=== PATIENT | male | born 1975 | race Hispanic/Latino ===

== ENCOUNTER 2025-03-10 14:02 | Inpatient (IN) | payer OTHER, SELFPAY ==
[2025-03-10] VITALS (9 sets, daily range): BP systolic 155–197; BP diastolic 106–133; BMI 22.8; BMI 22.7
--- NOTE | 2025-03-10 10:46 | ED.GENMED ---
History of Present Illness
General
Chief Complaint: Change in Mental Status
Time Seen by Provider: 03/10/25 10:41
History of Present Illness
History of Present Illness:
49-year-old male with no known past medical history presents to the emergency department for evaluation of abdominal pain and vomiting, he apparently was noted this morning to be weak and drowsy on the couch by a friend and EMS was called. He
admits to drinking several drinks last night into this morning with his last drink at approximately 1 AM. States that when he felt unwell this morning he took 'a ton of vitamins' but he is uncertain exactly what these pills may have been. Noted to
be febrile on arrival. Denies any hematemesis or melena.
Past History
Past History
ED Past Medical History: None
ED Past Surgical History: None
Social History
Tobacco: Non-smoker
Alcohol: Daily
Personal: Single
Living: with family
Review of Systems
Review of Systems
Allergies reviewed?: Yes
All Other Systems: ROS reviewed and negative except as documented in HPI and ROS
Phy Exam
Physical Exam
Physical Exam:
GEN: Ill-appearing, no immediate distress
HEENT: Oral mucosa moist, no scleral icterus
Cardiac: Tachycardic, regular
Lung: No respiratory distress, no tachypnea
Abdomen: Soft, diffuse tenderness to all 4 quadrants
MSK: No gross deformity or injuries
Skin: Good color, no pallor or jaundice, no rashes
Neuro: AO x3, moves all extremities freely
Psych: Calm, cooperative
Course
Orders/Labs/Results
Orders:
Orders
03/10/25 10:40
EKG [Electrocardiogram (*1)] Urgent
Reason for Study: Tachycardia
03/10/25 10:41
EKG- Treatment ONCE
03/10/25 10:42
COVID-19 Antigen Urgent
Source: Nasal Swab
Influenza A+B Rapid Molecular Urgent
SHANNAN Source: Nasal Swab
Specimen Description:
03/10/25 10:44
0.9% Sodium Chloride 1000 ml [Nss] 1,000 ml IV BOLUS
Ondansetron Injectable [Zofran] 4 mg IV NOW STA
03/10/25 10:49
Acetaminophen Urgent
Alcohol Urgent
Complete Blood Count/With Diff Urgent
Comprehensive Metabolic Panel Urgent
Lipase Urgent
Salicylate Urgent
03/10/25 11:01
Urinalysis Reflex To Culture Urgent
Date Specimen was Collected: 03/10/25
Time Specimen was Collected: 10:58
Urine Drug Abuse Screen Urgent
Date Specimen was Collected: 03/10/25
Time Specimen was Collected: 10:58
Urine Microscopic Reflex Cult Urgent
Urine Culture Urgent
SHANNAN Source: U
Specimen Description:
Date Specimen was Collected: 03/10/25
Time Specimen was Collected: 10:58
03/10/25 11:35
CT Abd/Pel (IV only)-DH only Urgent
Comment:
Reason For Exam: pancreatitis/fever
03/10/25 11:36
diazePAM [Valium Injection] 5 mg IV NOW STA
03/10/25 13:45
Admit/Transfer Patient As Directed
Co-Sign Provider:
Level of Care: Inpatient admission
Assign to:: Telemetry
Physician / Group: olinda
Diagnosis: alcohol pancreatitis
Reason for Telemetry: Arrhythmia
Date to Stop Telemetry: 03/13/25
Time to Stop Telemetry: 11:00
Reason for Hospitalization: alcohol pancreatitis
Expected length of stay greater than two midnights?: Yes
ELOS- Estimated Length of Stay in days: 3
I certify the patient meets the requirements for IP care: Yes
03/10/25 13:46
PRN Pain Medication Management As Directed
May give lesser potent ordered pain med per pt: Yes
preference::
Protocol:: Medication orders for pain may be administered in a
manner that supports deferring to patient preference
when the pt is:
- Requesting an ordered lesser potent pain medication.
Least to most potent pain medications are defined
as: acetaminophen < NSAID < tramadol < opioids
(morphine, oxycodone, hydromorphone).
- Requesting a lesser dose of the same medication IF
ORDERED.
- Requesting a less intrusive route of administration
if both routes are prescribed by the provider (PO <
IV).
03/10/25 13:47
Code Status As Directed
Resuscitation Status: Full Code
03/10/25 13:53
Potassium Chloride [KCl] 40 meq PO NOW STA
03/10/25 14:00
Flush (0.9% Sodium Chloride) [Flush (Nss)] See Dose Instructions IV PER PROTOCOL
03/10/25 14:01
PT/INR [Prothrombin Time] Stat
Blood Culture Q30M
SHANNAN Source: Blood/Venous
Specimen Description:
03/10/25 14:19
Blood Culture Q30M
SHANNAN Source: Blood/Venous
Specimen Description:
03/13/25 11:00
DC Protocol for Telemetry ONCE
Abnormal Lab Results
03/10/25 03/10/25
10:49 11:01
RDW 14.8 H %
(11.5-14.5)
Plt Count 43 L 10^3/uL
(130-400)
Absolute Lymphs (auto) 0.5 L 10^3/uL
(1.2-3.4)
Neutrophils % 83.0 H %
(42.2-75.2)
Lymphocytes % 9.9 L %
(20.5-51.1)
Sodium 133 L mmol/L
(135-145)
Potassium 3.4 L mmol/L
(3.5-5.1)
Chloride 90 L mmol/L
(98-107)
Glucose 225 H mg/dl
(70-99)
Total Bilirubin 2.1 H mg/dl
(0.2-1.3)
AST 630 H* U/L
(17-59)
ALT 203 H U/L
(0-50)
Lipase 1902 H* U/L
(23-300)
Urine Ketones 3+ A
(Negative)
Ur Occult Blood Reflex 4+ A
(Negative)
Urine Bilirubin 1+ A
(Negative)
Urine RBC 3-6 A /HPF
(0-2)
Urine Bacteria (Reflex) Moderate A
(Negative)
Urine Glucose 1+ A
(Negative)
Urine Albumin (Reflex) 3+ A
(Neg - Trace)
Salicylates < 1.0 L mg/dl
(2.0-20.0)
Acetaminophen < 10 L ug/ml
(10-30)
03/10/25 10:49
03/10/25 10:49
Vital Signs
Initial and Last Documented VS:
Initial Vital Signs
Temp Pulse Resp BP Pulse Ox
100.4 F H 132 20 197/133 95
03/10/25 10:35 03/10/25 10:35 03/10/25 10:35 03/10/25 10:35 03/10/25 10:35
Last Documented Vital Signs
Temp Pulse Resp BP Pulse Ox
100.1 F 113 20 167/117 98
03/10/25 13:50 03/10/25 13:24 03/10/25 10:35 03/10/25 14:00 03/10/25 14:00
MDM/Problems Addressed
MDM/Problems Addressed:
Patient's symptoms are likely due to acute pancreatitis, imaging shows no evidence for acute disease. He does admit to heavy alcohol use over the past 8 days but denies chronic use otherwise. Will be admitted to the hospitalist service for further
management of acute pancreatitis
Comment
Comment:
EKG independently interpreted by me shows sinus tachycardia without ischemic changes
*Pulse Oximetry
SaO2: 95
Oxygen Mode of Delivery: Room air
Patient hypoxic: no
*Critical Care Note
Total Time (30-74mins, 75-104mins- exclusive of procedures): Not Applicable
ED Attending Note
-
Portions of this chart may have been created with voice recognition software.� Occasional wrong word or��sound alike� substitutions may have occurred due to the inherent limitations of voice recognition software.
Discharge Plan
Departure
Patient Disposition: Admit
Date of Disposition: 03/10/25
Time of Disposition: 13:21
Admit to: Med/Surg
Presentation/result/management discussed w/ accepting MD/DO: Hospitalist
Discharge Problem:
Acute alcoholic pancreatitis, Alcohol withdrawal
Interventions
Interventions:
*Risk Screen - Suicide Last Done: 03/10/25 13:57
*General Assessment Last Done: 03/10/25 13:57
*Neglect/Abuse Screening Last Done: 03/10/25 13:57
ED- Neurological Assessment Last Done: 03/10/25 12:13
[2025-03-10] MEDS: NSS 1000 IV (10:53)
[2025-03-10] MEDS: ZOFRAN 4 MG IV ×2 (10:54→17:28)
[2025-03-10 11:04] LABS: COVID-19 Antigen Negative (Negative)
[2025-03-10 11:09] LABS: Urine Character Clear (Clear)
[2025-03-10 11:12] LABS: Hematocrit 42.0 % (39.0-52.0); Hemoglobin 14.4 g/dL (13.0-18.0); Mean Corp Hgb Conc. 34.3 g/dL (33.0-37.0); Mean Corpuscular Volume 84.2 fL (80.0-94.0)
[2025-03-10 11:13] LABS: Nucleated Red Blood Cells % 0 % (-)
[2025-03-10 11:16] LABS: Urine White Cell 0-2 /HPF (0-5)
[2025-03-10 11:34] LABS: ALT (SGPT) 203 U/L (0-50); AST (SGOT) 630 U/L (17-59); Acetaminophen < 10 ug/ml (10-30); Albumin 4.5 g/dl (3.5-5.0); Alkaline Phosphatase 106 U/L (38-126); Blood Urea Nitrogen 11 mg/dl (9-20); Calcium 9.3 mg/dl (8.4-10.2); Carbon Dioxide 28 mmol/L (22-30); Chloride 90 mmol/L (98-107); Glucose 225 mg/dl (70-99); Lipase 1902 U/L (23-300); Potassium 3.4 mmol/L (3.5-5.1); Salicylate < 1.0 mg/dl (2.0-20.0); Sodium 133 mmol/L (135-145); Total Protein 8.1 g/dl (6.3-8.2); eGFR > 60.00
[2025-03-10] MEDS: VALIUM INJECTION 5 MG IV (11:49)
[2025-03-10 12:27] LABS: Platelet Count 43 10^3/uL (130-400); Red Cell Dist. Width 14.8 % (11.5-14.5)
--- NOTE | 2025-03-10 13:23 | HPS.HSE ---
Addendum entered and electronically signed by Carli Sharif MD 03/10/25 15:01:
This is an addendum to H&P written by Leia Ricketts on 03/10/2025. �Patient seen and examined independently with [employer].
49-year-old male without past medical history presenting with abdominal pain with vomiting for 3 days. �Drinks 1 tequila drink every day last drink 2 days ago. Denies taking any drugs or vitamins or tablets.�
Vital signs show temperature 100.4. �Heart rate up to 132. �Blood pressure 197/133. �EKG shows sinus tachycardia. Tenderness in mid periumbilical region.�
Labs show potassium 3.4. AST of 630, ALT 203. �Lipase of 1900. �Blood sugar 225. �Salicylates and Tylenol negative. �UDS negative. �Alcohol level negative.
CT abdomen pelvis shows no significant peripancreatic inflammation or fluid collection despite elevated lipase levels. �Hepatomegaly and severe hepatic steatosis.
Patient with sepsis likely acute alcoholic pancreatitis although imaging without pancreatic inflammation. �N.p.o., IV fluids, check blood cultures due to fever. �Check PT and INR. �Pain control, antiemetics. �Hypokalemia from vomiting. �Replete
potassium. �Alcohol withdrawal protocol. �Thiamine and folate. Gi consulted.
PRN labetalol for hypertension.�
Check a1c and monitor blood sugars.�
Original Note:
Family Physician
-
Family Physician: * NONE
Chief Complaint
-
abdominal pain and vomiting
History of Present Illness
49-year-old male with no known past medical history presents to the emergency department for evaluation of abdominal pain and vomiting for past three days,patient stated he drinks Tequila one bottle every day. he has not drink for past two days due
to the abdominal pain and vomiting. his pain is in the middle around his umbical area. today he was very weak and brought to the hospital. denied fever, chills, chest pain, sob. denied dysuria or hematuria.
upon arrival noted transaminitis, elevated Lipase. admitting for further management. Patient received a dose of Valium, Zofran in the ER.
Medical History
Past Medical History
Past Medical History: Reports None
Past Surgical History: Reports None
Social History
Tobacco: Non-smoker
Alcohol: Daily
Drug: None
Living: With Family
Family History
Family History: Not pertinent
Allergies / Home Medications
Allergies reflects when Allergies were last updated in [facility].
Home Medications with original date entered in [facility]
Allergy/Medication List:
Allergies
Allergy/AdvReac Type Severity Reaction Status Date / Time
No Known Allergies Allergy Unverified 03/26/15 08:10
Home Medications
No Current Medications 12/26/12
pantoprazole 40 mg tablet,delayed release 40 mg PO BID #20 tabs 12/26/12
hydrocodone 5 mg-acetaminophen 325 mg tablet 1 - 2 tab PO Q4HPRN PRN severe pain #12 tabs 03/26/15
ibuprofen 600 mg tablet 600 mg PO Q8HPRN PRN pain #30 tabs 03/26/15
Review of Systems
-
Constitutional: Reports No Symptoms
EENT: Reports No Symptoms
Respiratory: Reports No Symptoms
Cardiac: Reports No Symptoms
Abdomen/GI: Reports Abdominal Pain, Nausea and Vomiting
: Reports No Symptoms
Musculoskeletal: Reports No Symptoms
Skin: Reports No Symptoms
Neurological: Reports No Symptoms
Endocrine: Reports No Symptoms
Hematologic/Lymphatic: Reports No Symptoms
Psych: Reports No Symptoms
Physical Exam
Vital Signs
Vital Signs
Temp Pulse Resp BP Pulse Ox
100.4 F H 113 20 197/133 97
03/10/25 10:35 03/10/25 12:13 03/10/25 10:35 03/10/25 10:35 03/10/25 12:13
Physical Exam
General: Well Developed, Well Nourished and No Apparent Distress
HEENT: NormoCephalic, Moist mucous membranes and Atraumatic
Respiratory: Clear
Cardiac: S1/S2 and Regular Rhythm; No Murmur or Rub
GI: Soft, Non Distended, Normal Bowel Sounds and Tender; No Organomegaly
Rectal: Deferred by Provider
Musculoskeletal: No Clubbing, No Cyanosis and No Edema
Skin: No Rash
Neuro: AO x 3 and Nonfocal/grossly intact
Psych: Calm
Laboratory Results
-
03/10/25 10:49
03/10/25 10:49
Laboratory Results
Total Bilirubin 2.1 mg/dl (0.2-1.3) H 03/10/25 10:49
AST 630 U/L (17-59) H* 03/10/25 10:49
ALT 203 U/L (0-50) H 03/10/25 10:49
Alkaline Phosphatase 106 U/L (38-126) 03/10/25 10:49
Lipase 1902 U/L (23-300) H* 03/10/25 10:49
Data Reviewed
-
CT Scan: Report Reviewed by me
Lab Data: Labs Reviewed by me
Impression/Plan
-
# sepsis secondary to Acute alcohol pancreatitis
#sepsis as evident by tachycardia fever
- Keep patient n.p.o.
- Fluids continued for hydration
- Trend LFTs and lipase
-Motrin prn for fever
- T. bili 2.1, AST 630, ALT 203, lipase 1902
- CT abdomen pelvis with impression of No significant peripancreatic inflammation/fluid or loculated fluid collection despite the elevated lipase levels.Hepatomegaly and severe hepatic steatosis.
# Acute hyponatremia likely hypovolemic
# Hypokalemia
- Sodium 133, K3.4
# Hypertension emergency
-labetalol added for htn and tachycardia
#hyperglycemia
-blood sugar elevated in 200's
-obtain accu chek and a1c
#alcohol withdrawal
-alcohol protocol initiated
-monitor MSAS score
#DVT prophylaxis
-Lovenox
#CODE status
-full code
[2025-03-10] MEDS: KCL 40 MEQ PO (14:15)
[2025-03-10 14:36] LABS: INR 0.95; PT 13.0 Sec (11.4-14.6)
--- NOTE | 2025-03-10 15:24 | EDCM ---
CM reviewed chart and met with pt bedside in ED. Pt states limited [place] Citizen. He told me he lives with his son and daughter in a 3 story home in [place], unable to give me address, He told me the [facility] address is not correct.
Independent in ADLs, personal care and ambulation at baseline.
Confirms he does not have health insurance.
Does not have PCP and is not able to name which pharmacy he would use.
Email sent to Ivet Leiva requesting she meet with pt regarding insurance coverage.
Anticipate discharge home, CM will continue to follow for all discharge planning needs.
[2025-03-10] MEDS: LR 1000 IV ×2 (16:44→23:27)
[2025-03-10] MEDS: LOVENOX 40 MG SC (17:22)
[2025-03-10 17:45] LABS: INR 0.98; PT 13.3 Sec (11.4-14.6)
[2025-03-10 17:46] LABS: APTT 26.7 Sec (23.4-35.0)
[2025-03-10 18:01] LABS: GGTP 1186 U/L (15-73); Magnesium 1.5 mg/dl (1.6-2.3)
[2025-03-10 18:03] LABS: Glucose - Point of Care 103 mg/dl (70-99)
--- NOTE | 2025-03-10 18:07 | PTCARENOTE ---
Pt started with a spontaneous nosebleed. Pt leaned forward and held pressure on the nose for 5min. Dr Sharif notified. After 5min nosebleed stopped. Dr Sharif recommended to hold pressure and lean forward for 15min if his nose starts to bleed
again.
[2025-03-10] MEDS: THIAMINE INJECTION 200 MG IV (20:45)
[2025-03-11] VITALS (9 sets, daily range): BP systolic 165–198; BP diastolic 106–159; BMI 22.7
[2025-03-11 00:52] LABS: Glucose - Point of Care 79 mg/dl (70-99)
[2025-03-11] MEDS: LR 1000 IV ×3 (05:50→19:52)
[2025-03-11 06:20] LABS: Glucose - Point of Care 82 mg/dl (70-99)
[2025-03-11] MEDS: FOLVITE 1 MG PO (07:58)
[2025-03-11] MEDS: THIAMINE INJECTION 200 MG IV ×2 (07:58→20:00)
[2025-03-11] MEDS: MOTRIN 400 MG PO (08:08)
[2025-03-11 08:20] LABS: ALT (SGPT) 168 U/L (0-50); AST (SGOT) 383 U/L (17-59); Albumin 3.8 g/dl (3.5-5.0); Alkaline Phosphatase 68 U/L (38-126); Blood Urea Nitrogen 7 mg/dl (9-20); Calcium 8.5 mg/dl (8.4-10.2); Carbon Dioxide 33 mmol/L (22-30); Chloride 94 mmol/L (98-107); Estimated Creatinine Clearance 124 ml/min; Glucose 81 mg/dl (70-99); HDL Cholesterol 64 mg/dl; LDL Cholesterol, Calculated 105 mg/dl; Potassium 2.9 mmol/L (3.5-5.1); Sodium 135 mmol/L (135-145); Total Protein 6.9 g/dl (6.3-8.2); Very Low Density Lipoprotein 19 mg/dl (0-30); eGFR > 60.00
--- NOTE | 2025-03-11 08:23 | CON.GI ---
Consultation
-
Date/Time Consultation Requested: 03/10/25
Date/Time Consultation Performed: 03/10/25
Requesting Provider: Leia Ricketts
Performing Provider: Jodi Olivas
Reason for Consultation: Etoh pancreatitis
Medical History
Chief Complaint / HPI
Chief Complaint: abdominal pain, nausea, vomiting
History of Present Illness:
Julio Graff is a 49 y.o. male with no reported pmhx who was admitted to yesterday with abdominal pain and vomiting x3 days. He admits to daily alcohol consumption, states he drinks 1 bottle of tequila or 10 beers daily for the last 15 years.
Last drink of alcohol was about 3 days ago with symptom onset due to his N/V. Due to severe weakness, he was brought to the hospital.
Labs on admission notable for elevated liver enzymes, elevated lipase and thrombocytopenia. He reports feeling much better this morning, would like to try eating.
WBC 5.2, Hgb 14.4, Plt 43, INR 0.95
BUN 11, Cr. 0.8
Tbili 2.1, AST 630, ALT 203, Tbili 2.1, Alk phos 106
Lipase 1902
UDS neg
UA +blood, ketones, RBC, moderate bacteria
Acetaminophen level neg
Salicylate level neg
Of note, last here at in 2012 and 2014 at which time he also had elevated LFTs, AST 118, ALT 123
CT A/P w/ IV Contrast 03/10/25: Hepatomegaly. Severe hepatic steatosis.
Past Medical History
Past Medical History: None
Past Surgical History: None
Social History
Alcohol: Daily
Family History
Family History: Reviewed & Not Pertinent
Allergies / Home Medications
Allergy/AdvReac Type Severity Reaction Status Date / Time
No Known Allergies Allergy Verified 03/10/25 15:41
�Medication �Instructions �Recorded
No Meds [No Current Medications] 03/10/25
Review of Systems
-
All other systems: A 12 pt ROS was Negative except as stated above in HPI
Vital Signs
Temp Pulse Resp BP Pulse Ox
99.8 F 114 16 168/118 99
03/11/25 03:24 03/11/25 03:24 03/11/25 03:24 03/11/25 03:24 03/11/25 03:24
Physical Exam
Exam
General: Well Developed, Well Nourished, No Apparent Distress and Comfortable
GI: Soft and Non Distended
Results
WBC 5.2 10^3/uL (4.8-10.8) 03/10/25 10:49
Hgb 14.4 g/dL (13.0-18.0) 03/10/25 10:49
Hct 42.0 % (39.0-52.0) 03/10/25 10:49
MCV 84.2 fL (80.0-94.0) 03/10/25 10:49
Plt Count 43 10^3/uL (130-400) L 03/10/25 10:49
Absolute Neuts (auto) 4.4 10^3/uL (1.4-6.5) 03/10/25 10:49
PT 13.3 Sec (11.4-14.6) 03/10/25 17:24
INR 0.98 03/10/25 17:24
APTT 26.7 Sec (23.4-35.0) 03/10/25 17:24
Sodium 135 mmol/L (135-145) 03/11/25 07:17
Potassium 2.9 mmol/L (3.5-5.1) L 03/11/25 07:17
Chloride 94 mmol/L (98-107) L 03/11/25 07:17
Carbon Dioxide 33 mmol/L (22-30) H 03/11/25 07:17
BUN 7 mg/dl (9-20) L 03/11/25 07:17
Creatinine 0.7 mg/dL (0.7-1.3) 03/11/25 07:17
Calcium 8.5 mg/dl (8.4-10.2) 03/11/25 07:17
Total Bilirubin 1.7 mg/dl (0.2-1.3) H 03/11/25 07:17
AST 383 U/L (17-59) H 03/11/25 07:17
ALT 168 U/L (0-50) H 03/11/25 07:17
Alkaline Phosphatase 68 U/L (38-126) 03/11/25 07:17
Lipase 1902 U/L (23-300) H* 03/10/25 10:49
Diagnostic Image Results:
Prior GI Procedures:
EGD:
Colonoscopy:
Assessment / Plan
-
49 y.o. male with alcohol abuse admitted with abdominal pain, nausea and vomiting found to have acute alcohol hepatitis with acute pancreatitis and thrombocytopenia.
#Acute alcohol hepatitis
-imaging shows severe hepatic steatosis and hepatomegaly, no findings of portal HTN or splenomegaly, however, significant thrombocytopenia, c/f either cirrhosis or portal HTN which can manifest with severe alc hep
-needs electrolyte repletion-- low mg, k
-recommend US w/ dopplers
-hepatitis panel pending
-LFTs elevated with AST > ALT, may have some ischemic injury as well with AST >600, now LFTs all improving
-continue to trend
-jono DF: 2.1
-MELD 3.0 = 12
-cousneled patient on need for etoh cessation-- suspect advanced hepatic fibrosis or cirrhosis with risk for further decompensation with ongoing etoh use. He expressed understanding and states he will stopped drinking, feels he is able to do this on
his own.
#Acute etoh pancreatitis-clinically improving
-Lipase 1902
-c/w LR
-pain control
-antiemetics
-advance diet as tolerated
Clinically, patient is improving. Advance diet and reduce fluids. From a GI perspective okay for d/c with outpatient GI/hepatology follow-up. GI will sign off, please call with questions.
Data Reviewed
-
CT Scan: Report Reviewed by me
Old Records: Reviewed
-
-
Thank you for consultation and allowing me to participate in the patient's care. Please call the [employer] [employer] GI physician during the after hours with any questions or concerns.
[2025-03-11 08:29] LABS: Lipase 2029 U/L (23-300)
[2025-03-11 09:00] LABS: Hematocrit 38.0 % (39.0-52.0); Hemoglobin 12.5 g/dL (13.0-18.0); Mean Corp Hgb Conc. 32.9 g/dL (33.0-37.0); Mean Corpuscular Volume 87.6 fL (80.0-94.0); Platelet Count 33 10^3/uL (130-400); Red Cell Dist. Width 14.6 % (11.5-14.5)
[2025-03-11 09:20] LABS: Glucose - Point of Care 77 mg/dl (70-99)
[2025-03-11] MEDS: KCL 270 MEQ IV (10:35)
--- NOTE | 2025-03-11 11:14 | W.PN.HOSP.TC ---
Addendum entered and electronically signed by Sarah Peralta MD 03/11/25 11:47:
Attending�addendum:
I saw and evaluated the patient. I reviewed the resident�s note and agree with findings and plan as documented in the resident�s note.��
Patient admitted last night with alcohol induced pancreatitis.
Patient seen and examined at bedside, denies any chest pain or shortness of breath, improved abdominal pain, no nausea, no vomiting, no diarrhea or constipation.
Physical�exam:
GENERAL : Patient is awake, alert, oriented x3
HEENT: Nonicteric sclerae, PERRLA, EOMI. Oropharynx clear. Moist mucous membranes. Conjunctivae appear well perfused.
CHEST: Chest wall is nontender.
HEART: Regular rate and rhythm without murmurs.
LUNGS: Clear to auscultation bilaterally.
ABDOMEN: Soft, positive bowel sounds, nontender, no organomegaly.
RECTAL: Deferred.
MUSCLES/EXTREMITIES: No abnormal range of motion, no swelling.SKIN: No rash, no excessive bruising, petechiae, or purpura.
NEUROLOGIC: Cranial nerves II-XII intact without motor/sensory deficit.
�
Assessment/plan:
Acute pancreatitis secondary to alcohol use.
IV fluid.
Start clear liquid diet.
Trend LFTs and lipase.
Alcohol use/withdrawal.
Continue CIWA protocol.
SIRS secondary to acute pancreatitis.
No evidence of infection
Transaminitis/alcoholic liver disease
Secondary to alcohol use
Hypertension.
No history of hypertension.
Not on any medications at home.
Could be contributed with pain.
Start low-dose Toprol-XL
Hypokalemia.
Replace
Hyperglycemia.
Hemoglobin A1c pending
CODE STATUS: Full code
DVT prophylaxis: Lovenox
Diet: Clear liquid
Disposition: Continue IV fluids, CIWA protocol, advance diet, replace K
�
Total time spent on today�s encounter was 51 minutes which included time spent in counseling the patient/family regarding diagnosis and treatment plan as listed above, goals of care, and symptom management. Case was discussed with nursing staff,
specialists, and care coordinators/case management. All labs and imaging personally reviewed by me. Remainder the time spent in detailed review of previous records, lab data, imaging, and other medical provider documentation.
Original Note:
Today's Communication/Plan
-
K repleted
advanced diet to clear liquids
started on Metoprolol XI 25mg PO daily for high blood pressure
Assessment / Plan
Assessment / Plan
49-year-old male without past medical history presenting with abdominal pain with vomiting for 3 days. �Drinks 1 tequila drink every day last drink 2 days ago. Denies taking any drugs or vitamins or tablets. �
Vital signs show temperature 100.4. �Heart rate up to 132. �Blood pressure 197/133. �EKG shows sinus tachycardia. Tenderness in mid periumbilical region.�
Labs at ER show potassium 3.4. AST of 630, ALT 203. �Lipase of 1900. �Blood sugar 225. �Salicylates and Tylenol negative. �UDS negative. �Alcohol level negative.
CT abdomen pelvis shows no significant peripancreatic inflammation or fluid collection despite elevated lipase levels. �Hepatomegaly and severe hepatic steatosis.
Plan:
# SIRS secondary to Acute alcohol pancreatitis as an inflammatory source (Tachycardia and fever) w/o source of infection found
- TG wnl
- follow hepatitis panel
- on clear liquids
- Fluids continued for hydration
- Trend LFTs and lipase
-Motrin prn for fever
- CT abdomen pelvis with impression of No significant peripancreatic inflammation/fluid or loculated fluid collection despite the elevated lipase levels.Hepatomegaly and severe hepatic steatosis.
#Transaminitis
-likely secondary to alcoholic liver , acute pancreatitis
-GGT level elevated
# Acute hyponatremia likely hypovolemic
-Sodium 135
# Hypokalemia
-K 2.5 repleted
# Hypertension emergency
-labetalol added for htn and tachycardia PRN
-started on metoprolol XI 25mg PO daily
#hyperglycemia
-blood sugar elevated in 200's
-obtain accu chek and a1c
#alcohol withdrawal
-alcohol protocol initiated
-monitor MSAS score
#DVT prophylaxis
-Lovenox
#CODE status
-full code
Anticipated Discharge: > 48 hours
Subjective/Interval History
-
Date of Service: March 11, 2025
Objective Data
-
Labs:
Laboratory Results
03/11/25
07:17
WBC 5.1
Hgb 12.5 L
Hct 38.0 L
Plt Count 33 L D
Sodium 135
Potassium 2.9 L
Chloride 94 L
Carbon Dioxide 33 H
BUN 7 L
Creatinine 0.7
Glucose 81
Calcium 8.5
Total Bilirubin 1.7 H
AST 383 H
ALT 168 H
Alkaline Phosphatase 68
Vital Signs:
Vital Signs
Temp Pulse Resp BP Pulse Ox
98.8 F 92 16 165/106 98
03/11/25 07:30 03/11/25 07:30 03/11/25 07:30 03/11/25 07:30 03/11/25 07:30
I&O
03/10/25 03/11/25 03/12/25
06:59 06:59 06:59
Intake Total 1800 / 1800
Balance 1800 / 1800
[2025-03-11] MEDS: TOPROL XL 25 MG PO (11:20)
[2025-03-11 12:00] LABS: Glucose - Point of Care 126 mg/dl (70-99)
[2025-03-11 12:09] LABS: Glycohemoglobin (HgbA1c) 5.7 % (4.0-5.6)
[2025-03-11 16:11] LABS: Hepatitis B Surface Antigen Negative (Negative)
[2025-03-11 16:29] LABS: Hepatitis A Antibody, Total Positive (Negative); Hepatitis C Antibody Negative (Negative)
[2025-03-11 16:49] LABS: Glucose - Point of Care 230 mg/dl (70-99)
[2025-03-11] MEDS: TRANDATE 10 MG IV (16:49)
[2025-03-11] MEDS: VALIUM INJECTION 5 MG IV ×3 (18:22→21:33)
--- NOTE | 2025-03-11 18:27 | PTCARENOTE ---
BP remains elevated after labetalol. Dr Smith notified. One time order of Valium ordered. Advised to recheck BP 1 hr after administration.
[2025-03-11] MEDS: CATAPRES 0.1 MG PO (20:42)
[2025-03-11 21:11] LABS: Glucose - Point of Care 119 mg/dl (70-99)
--- NOTE | 2025-03-11 21:30 | W.PN.UPDATE ---
Update Note
Progress Note Update
code purple x 2
Patient is Thai speaking, management information systems director services was used during the assessment.
He is very confused, trying to leave the hospital and staff was not able to redirect, patient just receive 5 mg Valium per the [facility] protocol before the first code purple. I tried to speak to the patient with the management information systems director services but the patient
confused. Staff and me tried to call the family/listed contacts multiple times with no answer, Patient is confused not able to unlock his phone to make calls as well. One time order for Valium 5mg IV.
-around 30 mins later, patient is more confused and running in the hallway, 2nd purple code placed. Soft restraints applied for patient safety, will start phenobarbital per protocol and transfer to IMU.
Plan to start Precedex/ICU as needed if no improvement or getting worse.
--- NOTE | 2025-03-11 22:15 | PTCARENOTE ---
Patient with agitation/ unable to reorient/ tried to escape through [facility] . Code purple called. Given Valium 5mg X2 with no effect. Blood sugar- 119. ST in 120s on tele. Placed patient on soft limb 4 point reastraint. Report called to ICU and
transferred patient to ICU as IMU overflow.
[2025-03-11] MEDS: DILAUDID 0.5 MG IV (22:27)
[2025-03-11] MEDS: PHENOBARBITAL 104 MG IV (22:27)
--- NOTE | 2025-03-11 22:30 | PTCARENOTE ---
Addendum entered by Mariel Barrera RN 03/11/25 23:03:
[employer] ordered medication for high blood pressure.
Original Note:
Pt's blood pressure manual 180/120, notified [employer].
[2025-03-11] MEDS: VALIUM INJECTION 10 MG IV (22:56)
--- NOTE | 2025-03-11 23:19 | PTCARENOTE ---
Patient received as transfer, patient in 4 point soft restraints. Khmer speaking, language line used for assessment and explanation of plan of care. Sinus Tachycardia in the 130s, blood pressure elevated. diaphoretic. Lungs clear, room air.
Abdomen soft but complaining of pain. No need to void. #20 g in LAC with IVF infusing as ordered, #22 g in left hand flushed and patent. CHG bath given
[2025-03-12] VITALS (13 sets, daily range): BP systolic 86–166; BP diastolic 66–122
[2025-03-12] MEDS: VALIUM INJECTION 10 MG IV ×4 (01:27→08:28)
[2025-03-12] MEDS: DILAUDID 0.5 MG IV ×2 (03:13→19:42)
[2025-03-12 04:35] LABS: Hematocrit 36.4 % (39.0-52.0); Hemoglobin 12.7 g/dL (13.0-18.0); Mean Corp Hgb Conc. 34.9 g/dL (33.0-37.0); Mean Corpuscular Volume 85.6 fL (80.0-94.0); Platelet Count 34 10^3/uL (130-400); Red Cell Dist. Width 14.1 % (11.5-14.5)
[2025-03-12] MEDS: LR 1000 IV ×3 (04:46→18:31)
[2025-03-12 05:16] LABS: ALT (SGPT) 130 U/L (0-50); AST (SGOT) 225 U/L (17-59); Albumin 3.5 g/dl (3.5-5.0); Alkaline Phosphatase 52 U/L (38-126); Blood Urea Nitrogen 5 mg/dl (9-20); Calcium 8.0 mg/dl (8.4-10.2); Carbon Dioxide 33 mmol/L (22-30); Chloride 99 mmol/L (98-107); Estimated Creatinine Clearance 108 ml/min; Glucose 93 mg/dl (70-99); Potassium 3.0 mmol/L (3.5-5.1); Sodium 138 mmol/L (135-145); Total Protein 6.5 g/dl (6.3-8.2); eGFR > 60.00
[2025-03-12 06:21] LABS: Magnesium 1.3 mg/dl (1.6-2.3)
[2025-03-12] MEDS: KCL 270 MEQ IV (06:23)
--- NOTE | 2025-03-12 07:55 | W.PN.HOSP.TC ---
Addendum entered and electronically signed by Margret Cespedes MD 03/12/25 17:52:
I saw and evaluated the patient independently. I reviewed the resident�s note and agree with findings and plan as documented by Dr. Bañuelos.
GENERAL: well developed, well nourished, male in no apparent distress
HEENT:NC/AT
HEART: regular rate and rhythm, +S1, +S2--tachycardic
LUNGS : clear to auscultation bilaterally
ABDOM: soft, mild tenderness midepigastrium, nondistended, + bowel sounds
EXT: no cyanosis, clubbing, or edema
NEUROLOGIC: no tremors--confused--no insight into condition and why he needs to stay
SIRS secondary to Acute alcoholic pancreatitis/hepatitis as an inflammatory source (Tachycardia and fever) w/o source of infection found--lipase decreasing--190, 2028, 1086--triglycerides WNL--cont IVF but can decrease rate--advance diet as
tolerated--CT with severe hepatic steatosis--hepatitis panel checked--pt is NOT immune to Hep B and has previous Hep A infection--await US with doppler--apprec GI
acute alcohol withdrawal--cont MSAS--cont phenobarbital taper and IV valium--if BP/HR remain elevated and mental status/respiratory rate depressed, may need precedex--await [facility] input--apprec psych--pt lacks capacity to be able to sign out AMA
Electrolyte abnormalities--Hypokalemia/hypomagnesemia--replete
Acute hyponatremia, likely hypovolemic�resolved
Hypertensive urgency--BP 197/133 on admission--due to ETOH withdrawal--started metoprolol XL 25mg PO daily--labetalol 10 mg as needed for HTN and tachycardia
hyperglycemia--blood sugar elevated in 200's, decreasing--obtain accu chek and a1c
DVT prophylaxis--Lovenox
CODE STATUS--full code
Original Note:
Today's Communication/Plan
-
Lipase decreased to 1086.
Advanced diet and will decrease fluids.
Abdomen ultrasound with Dopplers pending
- Consider precedex for future agitation/delirium since the patients respiratory rate was depressed to 9 after 10 mg Valium
- Tachycardic and BP elevated (140s) 03/12/25. Not stable for discharge despite patient wanting to return to work to support family
- Patient has poor insight into his condition and does not have capacity per psych consult
- Medical assistance forms provided
Assessment / Plan
Assessment / Plan
49-year-old male without significant past medical history presenting with abdominal pain with vomiting for 3 days. �Drinks 1 tequila drink every day last drink 2 days ago. Denies taking any drugs or vitamins or tablets. �
Vital signs show temperature 100.4. �Heart rate up to 132. �Blood pressure 197/133. �EKG shows sinus tachycardia. Tenderness in mid periumbilical region.�
Labs at ER show potassium 3.4. AST of 630, ALT 203. �Lipase of 1900. �Blood sugar 225. �Salicylates and Tylenol negative. �UDS negative. �Alcohol level negative.
CT abdomen pelvis shows no significant peripancreatic inflammation or fluid collection despite elevated lipase levels. �Hepatomegaly and severe hepatic steatosis.
Plan:
# SIRS secondary to Acute alcohol pancreatitis as an inflammatory source (Tachycardia and fever) w/o source of infection found
Lipase [address] abdomen pelvis with impression of No significant peripancreatic inflammation/fluid or loculated fluid collection despite the elevated lipase levels. Hepatomegaly and severe hepatic steatosis.
- TG wnl
- Motrin (ibuprofen) prn for fever
- Trend LFTs and lipase
- Fluids continued 150ml/hr (and monitoring for fluid overload). Plan to halve rate with next diet advancement (when low-fat diet starts). Continuing to trend lipase and monitor patient's symptoms for if he tolerates diet advancement
� Lipase decreased to 1086 on 03/12/2025.
� Diet advanced to low-fat
# Alcoholic hepatitis
Severe hepatic steatosis on CT
� LFTs downtrending
� ultrasound with Dopplers (to evaluate for portal venous thrombosis): pending
#alcohol withdrawal
-alcohol protocol initiated
-monitor MSAS score: Increasing 03/11/2025
-[facility] Cares consult for alcohol use disorder
- Consider precedex for future agitation/delirium since the patients respiratory rate was depressed to 9 after 10 mg Valium
- Tachycardic and BP elevated (140s) 03/12/25. Not stable for discharge despite patient wanting to return to work to support family
- Patient has poor insight into his condition and does not have capacity per psych consult
- Medical assistance forms provided
#Electrolyte abnormalities
# Hypokalemia
- Repleted p.o.
#Hypomagnesemia
- Repleted with 4 g IV over 4 hours. Recheck magnesium in a.m.
# Acute hyponatremia, likely hypovolemic�resolved
# Hypertensive urgency
BP 197/133 on admission
-started metoprolol XI 25mg PO daily
-labetalol 10 mg as needed for htn and tachycardia
#hyperglycemia
-blood sugar elevated in 200's, decreasing
-obtain accu chek and a1c
#DVT prophylaxis
-Lovenox
#CODE status
-full code
Anticipated Discharge: 24 - 48 hours
Subjective/Interval History
-
Date of Service: March 12, 2025
Overnight, patient tried to escape, running in the hallway, and was confused, not able to have a conversation (with interpretation services) or unlock his phone to allow providers to call his family for collateral. 2 code purples were called. He was
put in soft restraints and given 5 mg Valium IV. He calmed down.
This morning, he was complaining about continuing to be in soft restraints. He endorsed pain in his whole body and head.
Objective Data
-
Labs:
Laboratory Results
03/12/25
04:14
WBC 5.7
Hgb 12.7 L
Hct 36.4 L
Plt Count 34 L
Sodium 138
Potassium 3.0 L
Chloride 99
Carbon Dioxide 33 H
BUN 5 L
Creatinine 0.8
Glucose 93
Calcium 8.0 L
Total Bilirubin 1.4 H
AST 225 H
ALT 130 H
Alkaline Phosphatase 52
LABS
WBC 5.7 10^3/uL (4.8-10.8) 03/12/25 04:14
RBC 4.25 10^6/uL (4.70-6.10) L 03/12/25 04:14
Hgb 12.7 g/dL (13.0-18.0) L 03/12/25 04:14
Hct 36.4 % (39.0-52.0) L 03/12/25 04:14
MCV 85.6 fL (80.0-94.0) 03/12/25 04:14
MCH 29.9 pg (27.0-31.0) 03/12/25 04:14
MCHC 34.9 g/dL (33.0-37.0) 03/12/25 04:14
RDW 14.1 % (11.5-14.5) 03/12/25 04:14
Plt Count 34 10^3/uL (130-400) L 03/12/25 04:14
MPV Not Reportable 03/12/25 04:14
Abs Immat Gran (auto) 0.0 10^3/uL (0-0.05) 03/10/25 10:49
Absolute Neuts (auto) 4.4 10^3/uL (1.4-6.5) 03/10/25 10:49
Absolute Lymphs (auto) 0.5 10^3/uL (1.2-3.4) L 03/10/25 10:49
Absolute Monos (auto) 0.3 10^3/uL (0.1-0.6) 03/10/25 10:49
Absolute Eos (auto) 0.0 10^3/uL (0-0.7) 03/10/25 10:49
Absolute Basos (auto) 0.0 10^3/uL (0-0.2) 03/10/25 10:49
Immature Gran % 0.2 % (0-0.5) 03/10/25 10:49
Neutrophils % 83.0 % (42.2-75.2) H 03/10/25 10:49
Lymphocytes % 9.9 % (20.5-51.1) L 03/10/25 10:49
Monocytes % 5.5 % (1.7-9.3) 03/10/25 10:49
Eosinophils % 0.8 % (0-6) 03/10/25 10:49
Basophils % 0.6 % (0-2) 03/10/25 10:49
Nucleated RBC % 0 % (-) 03/10/25 10:49
PT 13.3 Sec (11.4-14.6) 03/10/25 17:24
INR 0.98 03/10/25 17:24
APTT 26.7 Sec (23.4-35.0) 03/10/25 17:24
Sodium 138 mmol/L (135-145) 03/12/25 04:14
Potassium 3.0 mmol/L (3.5-5.1) L 03/12/25 04:14
Chloride 99 mmol/L (98-107) 03/12/25 04:14
Carbon Dioxide 33 mmol/L (22-30) H 03/12/25 04:14
BUN 5 mg/dl (9-20) L 03/12/25 04:14
Creatinine 0.8 mg/dL (0.7-1.3) 03/12/25 04:14
Estimated Creat Clear 108 ml/min 03/12/25 04:14
eGFR > 60.00 03/12/25 04:14
Glucose 93 mg/dl (70-99) 03/12/25 04:14
Hemoglobin A1c 5.7 % (4.0-5.6) H 03/10/25 17:24
Calcium (corrected 8.4) 8.0 mg/dl (8.4-10.2) L 03/12/25 04:14
Phosphorus 2.9 mg/dl (2.5-4.5) 03/10/25 17:24
Magnesium 1.3 mg/dl (1.6-2.3) L 03/12/25 04:14
Total Bilirubin 1.4 mg/dl (0.2-1.3) H 03/12/25 04:14
GGT 1186 U/L (15-73) H 03/10/25 17:24
AST 225 U/L (17-59) H 03/12/25 04:14
ALT 130 U/L (0-50) H 03/12/25 04:14
Alkaline Phosphatase 52 U/L (38-126) 03/12/25 04:14
Total Protein 6.5 g/dl (6.3-8.2) 03/12/25 04:14
Albumin 3.5 g/dl (3.5-5.0) 03/12/25 04:14
Triglycerides 97 mg/dl (10-149) 03/11/25 07:17
Total Cholesterol 188 mg/dl (50-199) 03/11/25 07:17
LDL Cholesterol, Calc 105 mg/dl 03/11/25 07:17
VLDL Cholesterol, Calc 19 mg/dl (0-30) 03/11/25 07:17
HDL Cholesterol 64 mg/dl 03/11/25 07:17
Lipase 2029 U/L (23-300) H* 03/11/25 07:17
Urine Color Kathy 03/10/25 11:01
Urine Clarity Clear (Clear) 03/10/25 11:01
Urine pH 7.0 (5.0-9.0) 03/10/25 11:01
Ur Specific [place] 1.015 (<1.030) 03/10/25 11:01
Urine Ketones 3+ (Negative) A 03/10/25 11:01
Ur Occult Blood Reflex 4+ (Negative) A 03/10/25 11:01
Urine Nitrite (Reflex) Negative (Negative) 03/10/25 11:01
Urine Bilirubin 1+ (Negative) A 03/10/25 11:01
Urine Urobilinogen 1+ (Neg - 1+) 03/10/25 11:01
Leukocyte Esterase Rfl Negative (Negative) 03/10/25 11:01
Urine RBC 3-6 /HPF (0-2) A 03/10/25 11:01
Urine WBC (Reflex) 0-2 /HPF (0-5) 03/10/25 11:01
Ur Squamous Epith Cells 3-5 /LPF (Few) 03/10/25 11:01
Urine Bacteria (Reflex) Moderate (Negative) A 03/10/25 11:01
Hyaline Casts 3-5 /LPF (0-2) 03/10/25 11:01
Urine Mucus Many 03/10/25 11:01
Urine Glucose 1+ (Negative) A 03/10/25 11:01
Urine Albumin (Reflex) 3+ (Neg - Trace) A 03/10/25 11:01
Salicylates < 1.0 mg/dl (2.0-20.0) L 03/10/25 10:49
Urine Opiates Screen Negative (Negative) 03/11/25 05:59
Ur Buprenorphine Negative (Negative) 03/11/25 05:59
Ur Oxycodone Screen Negative (Negative) 03/11/25 05:59
Urine Methadone Screen Negative (Negative) 03/11/25 05:59
Urine Fentanyl Screen Negative (Negative) 03/11/25 05:59
Acetaminophen < 10 ug/ml (10-30) L 03/10/25 10:49
Ur Barbiturates Screen Negative (Negative) 03/11/25 05:59
Ur Tricyclics Screen Negative (Negative) 03/11/25 05:59
Ur Phencyclidine Scrn Negative (Negative) 03/11/25 05:59
Ur Amphetamines Screen Negative (Negative) 03/11/25 05:59
U Methamphetamines Scrn Negative (Negative) 03/11/25 05:59
U Benzodiazepines Scrn Positive (Negative) H 03/11/25 05:59
Urine Cocaine Screen Negative (Negative) 03/11/25 05:59
U Marijuana (THC) Screen Negative (Negative) 03/11/25 05:59
Alcohol, Quantitative None detected mg/dl 03/10/25 17:24
B-Hydroxybutyrate 4.08 mmol/L (0.02-0.27) H 03/10/25 17:24
Hepatitis A IgM Ab Negative (Negative) 03/11/25 07:17
Hepatitis A Ab Total Positive (Negative) 03/11/25 07:17
Hep Bs Antigen Negative (Negative) 03/11/25 07:17
Hep Bs Antibody Negative 03/11/25 07:17
Hep B Core Total Ab Negative (Negative) 03/11/25 07:17
Hep B Core IgM Ab Cancelled 03/11/25 07:17
Hepatitis C Antibody Negative (Negative) 03/11/25 07:17
SARS-CoV-2 Antigen Negative (Negative) 03/10/25 10:42
POC Glucose 98 mg/dl (70-99) 03/12/25 07:51
Intake /Output/Weight
03/10/25 03/11/25 03/12/25 03/13/25
06:59 06:59 06:59 06:59
Intake Total 1800 / 1800 960 / 960
Balance 1800 / 1800 960 / 960
Vital Signs:
Vital Signs
Temp Pulse Resp BP Pulse Ox
98 F 71 9 120/89 98
03/12/25 03:22 03/12/25 03:00 03/12/25 03:00 03/12/25 02:00 03/11/25 23:18
I&O
03/11/25 03/12/25 03/13/25
06:59 06:59 06:59
Intake Total 1800 / 1800 960 / 960
Balance 1800 / 1800 960 / 960
[2025-03-12 08:03] LABS: Glucose - Point of Care 98 mg/dl (70-99)
[2025-03-12] MEDS: PHENOBARBITAL 97.5 MG IV ×3 (08:09→21:46)
[2025-03-12] MEDS: THIAMINE INJECTION 200 MG IV ×2 (08:29→19:36)
--- NOTE | 2025-03-12 08:38 | PTCARENOTE ---
Spoke to patient while he was awake, Ox3, answered questions appropriately, seemed to understand plan of care while in hospital. Left to get a drink for the patient. Upon re-entering the room, there was blood all over his blankets from an IV he
ripped in half. Heart monitor was off, BP cuff ripped off by the cable. PT tachycardic with severe tremors. MSAS scored and pt given 10mg of valium. Pt now resting, BL SLR intact on wrists.
[2025-03-12] MEDS: TOPROL XL 25 MG PO (10:15)
[2025-03-12] MEDS: MAGNESIUM SULFATE 100 IV (10:16)
[2025-03-12] MEDS: KCL 40 MEQ PO (10:16)
[2025-03-12] MEDS: FOLVITE 1 MG PO (10:16)
[2025-03-12] MEDS: VALIUM INJECTION 5 MG IV ×2 (10:17→12:29)
[2025-03-12 12:23] LABS: Lipase 1086 U/L (23-300)
--- NOTE | 2025-03-12 15:08 | CS.PSYCHR ---
Consult Summary - Psychiatry
-
pt seen by me today for assessment of capacity to leave [facility]a Interviewed with kennel technician via tele
49 yo male primarily malay speaking brought to ED by EMS called by friend who found him week and confused. Has long history of alcohol use disorder, drinking a bottle of tequila per day per friends. Complained of abdominal pain and vomiting,
acknowledged heavy alcohol use, found to have pancratitis with elevated liver and pancreatic enzymes. No prior psychiatric history known, pt denied previous efforts at alcohol cessation, though language barrier hampered interview.
Admitted; electrolyte abnormalities, vitamin deficiencies corrected, and gut rested with NPO status. Placed on alcohol withdrawal protocl using phenobarb taper.
Imaging showed 'severe hepatic steatosis' Noted to have significant thrombocytopenia, with platelets of 34 today
Pt difficult to interview due to his preoccupation with the monitors on his body, which he kept trying to remove as I (with assistance of marketing secretary) kept re-applying. He is upset that he is here, that people are not telling him the truth. Shows me
the IV tubing ports, stating 'they put glue in here' believes that the medication he is being given is making him worse.
With his assistance and agreement I phoned a friend of his, Abhinav ([phone].) He answered, and I placed him on speaker. He tried to encourage patient to calm down and cooperate with his care. He addressed me and told me that pt is not himself,
that we should please keep him and treat him. He was going to try to reach patient's daughter to get her to come in.
Impression: Alcohol withdrawal, pancreatitis, alcohol use disorder severe
Pt clearly lacks understanding of the care we are trying to provide, His delusions that he is being poisoned render him incapable of leaving AMA
Would continue with current regimen, continue use of IV valium to help with agitation
--- NOTE | 2025-03-12 15:31 | PTCARENOTE ---
Behavior has been appropriate, restraints have been off since 1200 and he has been using the call collier appropriately. MSAS continues. He requires int valium for scores related to tachycardia, diaphoresis and tremors.
[2025-03-12 16:47] LABS: Glucose - Point of Care 148 mg/dl (70-99)
[2025-03-12] MEDS: TORADOL 30 MG IV (16:53)
--- NOTE | 2025-03-12 17:10 | CM ---
Patient seen at bedside with physicians in ICU. Patient also seen by psych and patient lacks understanding and per family friend they are reaching out to daughter to obtain further supports. CM will continue to follow for discharge planning needs.
Plan; SNF vs [facility] pending medical treatment plan
--- NOTE | 2025-03-12 20:54 | PTCARENOTE ---
Received patient at start of shift. Patient aao x3, able to make needs known. Family visiting at bedside, patient affect pleasant. Verbalizes headache pain 7/10 earlier this shift. PRN medication administered with positive results noted. HRR,
positive pulses, lungs cta throughout. BS active x4. Patient continues with LR at 150ml/hr to left ac. Patient assist x1 back to bed for the evening. Call collier within reach, bed alarm on, will continue to monitor patient closely.
[2025-03-13] VITALS (10 sets, daily range): BP systolic 119–166; BP diastolic 91–119
[2025-03-13 00:03] LABS: Glucose - Point of Care 72 mg/dl (70-99)
[2025-03-13] MEDS: LR 1000 IV ×3 (02:32→18:27)
--- NOTE | 2025-03-13 03:13 | PTCARENOTE ---
Patient noted to be forgetful at times throughout shift and attempting to get oob to use urinal. Reminded patient to use call collier for assistance, patient agreeable and verbalizes understanding however, is forgetful. Affect remains pleasant. Denies
pain at this time. Will continue to monitor patient closely.
[2025-03-13 04:16] LABS: Hematocrit 34.3 % (39.0-52.0); Hemoglobin 11.5 g/dL (13.0-18.0); Mean Corp Hgb Conc. 33.5 g/dL (33.0-37.0); Mean Corpuscular Volume 86.6 fL (80.0-94.0); Platelet Count 40 10^3/uL (130-400); Red Cell Dist. Width 14.3 % (11.5-14.5)
[2025-03-13 04:26] LABS: ALT (SGPT) 119 U/L (0-50); AST (SGOT) 164 U/L (17-59); Albumin 3.3 g/dl (3.5-5.0); Alkaline Phosphatase 54 U/L (38-126); Blood Urea Nitrogen 4 mg/dl (9-20); Calcium 8.0 mg/dl (8.4-10.2); Carbon Dioxide 29 mmol/L (22-30); Estimated Creatinine Clearance 124 ml/min; Glucose 82 mg/dl (70-99); Magnesium 1.7 mg/dl (1.6-2.3); Potassium 3.2 mmol/L (3.5-5.1); Sodium 136 mmol/L (135-145); Total Protein 6.1 g/dl (6.3-8.2); eGFR > 60.00
[2025-03-13 04:31] LABS: Chloride 100 mmol/L (98-107)
[2025-03-13] MEDS: KCL ELIXIR 40 MEQ PO (04:49)
--- NOTE | 2025-03-13 09:03 | W.PN.HOSP.TC ---
Addendum entered and electronically signed by Margret Cespedes MD 03/13/25 18:07:
I saw and evaluated the patient independently. I reviewed and discussed the resident�s note and agree with findings and plan as documented by Dr. Bañuelos.
GENERAL: well developed, well nourished, male in no apparent distress--much improved today
HEENT: NC/AT
HEART: regular rate and rhythm, +S1, +S2--tachycardic
LUNGS : clear to auscultation bilaterally
ABDOM: soft, nontender, midepigastrium, nondistended, + bowel sounds
EXT: no cyanosis, clubbing, or edema
NEUROLOGIC: no tremors--confused--no insight into condition and why he needs to stay
SIRS secondary to Acute alcoholic pancreatitis/hepatitis as an inflammatory source (Tachycardia and fever) w/o source of infection found--lipase decreasing--190, 2028, 1086, 792--triglycerides WNL--stop IVF but can decrease rate--advance diet as
tolerated--CT with severe hepatic steatosis--hepatitis panel checked--pt is NOT immune to Hep B and has previous Hep A infection- US with doppler shows fatty liver--apprec GI
acute alcohol withdrawal--cont MSAS--cont phenobarbital taper and IV valium--did not need need precedex and did not require extra IV valium dosing---apprec psych--pt lacks capacity to be able to sign out AMA, but is much improved today--anticipate
d/c tomorrow
Electrolyte abnormalities--Hypokalemia/hypomagnesemia--replete
Acute hyponatremia, likely hypovolemic�resolved
Hypertensive urgency--BP 197/133 on admission--due to ETOH withdrawal--started metoprolol XL 25mg PO daily, increased to 50mg--labetalol 10 mg as needed for HTN and tachycardia
hyperglycemia--blood sugar elevated in 200's, decreasing--d/c accuchecks
DVT prophylaxis--Lovenox
CODE STATUS--full code
downgrade to tele--anticipate d/c tomorrow
Original Note:
Today's Communication/Plan
-
Metoprolol increased from 25 to 50 mg po daily.
Lipase continued to downtrend from 1000 to 800. Continue low fat diet.
Trying to reach family for discharge planning.
Assessment / Plan
Assessment / Plan
49-year-old male without significant past medical history presenting with abdominal pain with vomiting for 3 days. �Drinks 1 tequila drink every day last drink 2 days ago. Denies taking any drugs or vitamins or tablets. �
Vital signs show temperature 100.4. �Heart rate up to 132. �Blood pressure 197/133. �EKG shows sinus tachycardia. Tenderness in mid periumbilical region.�
Labs at ER show potassium 3.4. AST of 630, ALT 203. �Lipase of 1900. �Blood sugar 225. �Salicylates and Tylenol negative. �UDS negative. �Alcohol level negative.
CT abdomen pelvis shows no significant peripancreatic inflammation or fluid collection despite elevated lipase levels. �Hepatomegaly and severe hepatic steatosis.
Downgraded to telemetry 03/13/25.
Plan:
# SIRS secondary to Acute alcohol pancreatitis as an inflammatory source (Tachycardia and fever) w/o source of infection found
Lipase [address] abdomen pelvis with impression of No significant peripancreatic inflammation/fluid or loculated fluid collection despite the elevated lipase levels. Hepatomegaly and severe hepatic steatosis.
- TG wnl
- Motrin (ibuprofen) prn for fever
- Trend LFTs and lipase
- Discontinued fluids 03/13/25
� Lipase decreased to 1086 on 03/12/2025 and 792 on 03/13/25
� Diet advanced to low-fat. Tolerated
# Alcoholic hepatitis
Severe hepatic steatosis on CT
� LFTs downtrending
� ultrasound with Dopplers (to evaluate for portal venous thrombosis): pending
#alcohol withdrawal
-alcohol protocol initiated
-monitor MSAS score: Increasing 03/11/2025
-[facility] consult for alcohol use disorder
- Consider precedex for future agitation/delirium since the patients respiratory rate was depressed to 9 after 10 mg Valium
- Tachycardic and BP elevated (140s) 03/12/25. Not stable for discharge despite patient wanting to return to work to support family
- Patient has poor insight into his condition and does not have capacity per psych consult 03/12/25
- Medical assistance forms provided
#Electrolyte abnormalities
# Hypokalemia
- Repleted p.o.
#Hypomagnesemia
- Repleted
# Acute hyponatremia, likely hypovolemic�resolved
# Hypertensive urgency
BP 197/133 on admission
-started metoprolol XI 25mg PO daily. Increased to 50 mg metroprolol XI PO daily 03/13/25
-labetalol 10 mg as needed for htn and tachycardia. Discontinued
#hyperglycemia
-blood sugar elevated in 200's, decreasing
-obtain accu chek and a1c
#DVT prophylaxis
-Lovenox
#CODE status
-full code
Anticipated Discharge: Within 24 hours
Subjective/Interval History
-
Date of Service: March 13, 2025
No agitation/delirium or acute events overnight. No complaints today other than mild headache that resolves with medication.
Objective Data
-
Labs:
Laboratory Results
03/13/25
03:42
WBC 5.4
Hgb 11.5 L
Hct 34.3 L
Plt Count 40 L
Sodium 136
Potassium 3.2 L
Chloride 100
Carbon Dioxide 29
BUN 4 L
Creatinine 0.7
Glucose 82
Calcium 8.0 L
Total Bilirubin 1.4 H
AST 164 H
ALT 119 H
Alkaline Phosphatase 54
Vital Signs:
Vital Signs
Temp Pulse Resp BP Pulse Ox
98.5 F 75 10 160/109 99
03/13/25 07:23 03/13/25 05:00 03/13/25 05:00 03/13/25 04:00 03/13/25 03:57
I&O
03/12/25 03/13/25 03/14/25
06:59 06:59 06:59
Intake Total 960 / 960 2700 / 2700
Output Total 2950 / 2950 750 / 750
Balance 960 / 960 -250 / -250 -750 / -750
Review of Systems
-
All other systems: Reviewed and negative
Physical Exam
-
General: Well Developed, Well Nourished, No Apparent Distress and Comfortable
HEENT: Normocephalic and Atraumatic
Respiratory: Clear to Auscultation
Cardiac: Regular Rhythm and S1/S2
GI: Soft, Nontender, Nondistended and Normal Bowel Sounds
Musculoskeletal: No Edema
Skin: Warm and Dry
Neuro: Awake, Alert, Nonfocal/Grossly Intact and Central Nerve's Intact
Psych: Calm
[2025-03-13] MEDS: THIAMINE INJECTION 200 MG IV (09:14)
[2025-03-13] MEDS: TOPROL XL 25 MG PO (09:14)
[2025-03-13] MEDS: FOLVITE 1 MG PO (09:14)
[2025-03-13] MEDS: PHENOBARBITAL 97.5 MG IV ×3 (09:15→21:12)
--- NOTE | 2025-03-13 09:32 | PTCARENOTE ---
Pt is pleasant and cooperative and I'm told he has been this way all night. He states he slept well and offers no complaints. Pt is NSR on tele and scores a 2 on MSAS. Soft ABd, he does not complain of any pain. He uses the urinal without
difficulty. L AC 20 intact with LR infusing at 150/hr.
[2025-03-13 09:35] LABS: Glucose - Point of Care 81 mg/dl (70-99)
[2025-03-13 10:23] LABS: Lipase 792 U/L (23-300)
[2025-03-13] MEDS: KCL 40 MEQ PO (13:18)
[2025-03-13] MEDS: MAGNESIUM SULFATE 50 IV (13:18)
--- NOTE | 2025-03-13 14:11 | PN.CDI ---
CDI
- -
CDI:
Physician Documentation Request
Admit Date: 03/10/25 14:02
Dear Doctor,
Please review the following and provide your response in the progress notes.
Clinical Indicators:
Pt admitted with Acute Alcoholic Pancreatitis/Acute Alcoholic induced hepatitis
GI consult, ' LFTs elevated with AST > ALT, may have some ischemic injury as well with AST >600, now LFTs all improving continue to trend..'
Trended Liver functions below /Pt has been getting IVFs
Laboratory Tests
03/10/25 03/11/25 03/12/25
10:49 07:17 04:14
AST 383 H 225 H
ALT 203 H 168 H 130 H
03/13/25
03:42
AST 164 H
ALT 119 H
Based on the above, could you clarify in the progress notes, the appropriate diagnosis, if significant, that supports the above abnormalities and additional evaluation, monitoring and/or treatment rendered:
Acute Hepatic Failure
Ischemic liver injury only
Other ( please specify)
Use of terms such as suspected, likely, concern for, or probable (associated with a specific diagnosis that is being evaluated, monitored, or treated as if it exists) are acceptable and can be coded in the inpatient setting, when documented at the
time of discharge.
Thank you,
Jackelyn Rebollar RN
CDI Specialist
[facility]
Please use your independent medical judgment in providing your response.
--- NOTE | 2025-03-13 16:42 | W.PN.UPDATE ---
Update Note
Progress Note Update
pt seen for assessment of progress. much improved, able to have prolonged conversation (via stock handler floorperson line.) Pleading to be allowed to go home, says he needs to get back to work. 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
Swears he will never drink again. Still not taking solid food, but says he knows his pancreas is ok since no more pain. In process of phenobarb taper. Would be ok to send home if family able to support this, but otherwise will need to stay until a
bit more stable (likely one more day.)
--- NOTE | 2025-03-13 17:45 | CM ---
Addendum entered by Rosanne Bowling 03/13/25 17:46:
Nadja Driver [phone]
Original Note:
Patient spoke with CM and will discuss with patient physicians options and recommendations. Patient to shrimp picker patient tomorrow at 3pm pending her discussion with patient physicians. Patient seen by Psychiatry and CM will follow for
discharge planning needs.
Plan; home with family supports.
[2025-03-13] MEDS: LR IV (18:25)
[2025-03-13] MEDS: VITAMIN B1 100 MG PO (19:32)
--- NOTE | 2025-03-13 21:46 | PTCARENOTE ---
Received patient at start of shift. Patient aao x3, forgetfulness noted at times. Affect pleasant, MSAS 1 for HR between 80-100bpm. Denies pain. Patient continues to stand without using call collier, bed and chair alarms on. Patient standby assist x1
for safety. NSR on the monitor, lungs cta throughout. BS active x4, patient continent and using urinal as needed. Call collier within reach, will continue to monitor patient closely.
[2025-03-14] VITALS (24 sets, daily range): BP systolic 125–187; BP diastolic 86–139
--- NOTE | 2025-03-14 02:29 | DOWNTIME ---
There was a musiXmatch Client Wet Pan Operator Downtime on 03/14/2025 from 0100 to 03/14/2025 at 0215. Downtime documentation of patient's care, including medication administrations, has been reconciled in the electronic record per guidelines. Refer to the
patient's paper chart under the miscellaneous tab to see printed paper medication records and downtime forms.
[2025-03-14 04:00] LABS: ALT (SGPT) 107 U/L (0-50); AST (SGOT) 122 U/L (17-59); Albumin 3.4 g/dl (3.5-5.0); Alkaline Phosphatase 65 U/L (38-126); Blood Urea Nitrogen 6 mg/dl (9-20); Calcium 8.2 mg/dl (8.4-10.2); Carbon Dioxide 28 mmol/L (22-30); Chloride 104 mmol/L (98-107); Estimated Creatinine Clearance 124 ml/min; Glucose 88 mg/dl (70-99); Lipase 1327 U/L (23-300); Magnesium 1.8 mg/dl (1.6-2.3); Potassium 3.6 mmol/L (3.5-5.1); Sodium 137 mmol/L (135-145); Total Protein 6.3 g/dl (6.3-8.2); eGFR > 60.00
[2025-03-14] MEDS: LR 1000 IV (06:14)
--- NOTE | 2025-03-14 07:40 | W.PN.HOSP.TC ---
Addendum entered and electronically signed by Margret Cespedes MD 03/14/25 15:29:
I saw and evaluated the patient independently. I reviewed and discussed the resident�s note and agree with findings and plan as documented by Dr. Bañuelos.
GENERAL: well developed, well nourished, male in no apparent distress--much improved today
HEENT: NC/AT
HEART: regular rate and rhythm, +S1, +S2--tachycardic
LUNGS : clear to auscultation bilaterally
ABDOM: soft, nontender, midepigastrium, nondistended, + bowel sounds
EXT: no cyanosis, clubbing, or edema
NEUROLOGIC: no tremors
SIRS secondary to Acute alcoholic pancreatitis/hepatitis as an inflammatory source (Tachycardia and fever) w/o source of infection found--lipase decreasing--190, 2028, 1086, 792--triglycerides WNL--stop IVF but can decrease rate--advance diet as
tolerated--CT with severe hepatic steatosis--hepatitis panel checked--pt is NOT immune to Hep B and has previous Hep A infection- US with doppler shows fatty liver--apprec GI
acute alcohol withdrawal--cont MSAS--cont phenobarbital taper and IV valium--did not need need precedex and did not require extra IV valium dosing---apprec psych--pt lacks capacity to be able to sign out AMA, but is much improved today--anticipate
d/c tomorrow
Electrolyte abnormalities--Hypokalemia/hypomagnesemia--replete
Acute hyponatremia, likely hypovolemic�resolved
Hypertensive urgency--BP 197/133 on admission--due to ETOH withdrawal--started metoprolol XL 25mg PO daily, increased to 50mg--not controlled well on this, ancelmo also did nothing--IV labetalol worked the best so will d/c pt on labetalol 100mg BID
hyperglycemia--blood sugar elevated in 200's, decreasing--d/c accuchecks
DVT prophylaxis--Lovenox
CODE STATUS--full code
NEEDS CLOSE FOLLOW UP WITH THE DOCTORS OUTLINED AND HE HAS BEEN TOLD THAT
Original Note:
Today's Communication/Plan
-
Lipase increased slightly from 800 to 1300. Night team started fluids. Given 1L.
For elevated blood pressure, trialed labetalol 10 mg IV. Blood pressure decreased but increased shortly. Trialed amlodipine 5 mg PO and will discharge patient with this. Instructed patient to establish care with primary care doctor yessi a week to
follow up on blood pressure and his hospital stay in general. Referred to residency clinic.
Assessment / Plan
Assessment / Plan
49-year-old male without significant past medical history presenting with abdominal pain with vomiting for 3 days. �Drinks 1 tequila drink every day last drink 2 days ago. Denies taking any drugs or vitamins or tablets. �
Vital signs show temperature 100.4. �Heart rate up to 132. �Blood pressure 197/133. �EKG shows sinus tachycardia. Tenderness in mid periumbilical region.�
Labs at ER show potassium 3.4. AST of 630, ALT 203. �Lipase of 1900. �Blood sugar 225. �Salicylates and Tylenol negative. �UDS negative. �Alcohol level negative.
CT abdomen pelvis shows no significant peripancreatic inflammation or fluid collection despite elevated lipase levels. �Hepatomegaly and severe hepatic steatosis.
Downgraded to telemetry 03/13/25.
Plan:
# SIRS secondary to Acute alcohol pancreatitis as an inflammatory source (Tachycardia and fever) w/o source of infection found
Lipase [address] abdomen pelvis with impression of No significant peripancreatic inflammation/fluid or loculated fluid collection despite the elevated lipase levels. Hepatomegaly and severe hepatic steatosis.
- TG wnl
- Motrin (ibuprofen) prn for fever
- Trend LFTs and lipase
- Discontinued fluids 03/13/25
� Lipase decreased to 1086 on 03/12/2025 and 792 on 03/13/25
� Diet advanced to low-fat. Tolerated
# Alcoholic hepatitis
Severe hepatic steatosis on CT
� LFTs downtrending
� ultrasound with Dopplers (to evaluate for portal venous thrombosis): pending
#alcohol withdrawal
-alcohol protocol initiated
-monitor MSAS score: Increasing 03/11/2025
-[facility] consult for alcohol use disorder
- Consider precedex for future agitation/delirium since the patients respiratory rate was depressed to 9 after 10 mg Valium
- Tachycardic and BP elevated (140s) 03/12/25. Not stable for discharge despite patient wanting to return to work to support family
- Patient has poor insight into his condition and does not have capacity per psych consult 03/12/25
- Medical assistance forms provided
#Electrolyte abnormalities
# Hypokalemia
- Repleted p.o.
#Hypomagnesemia
- Repleted
# Acute hyponatremia, likely hypovolemic�resolved
# Hypertensive urgency
BP 197/133 on admission
-trialed metoprolol XI 25mg PO daily. Increased to 50 mg metroprolol XI PO daily 03/13/25. Discontinued
-trailed labetalol 10 mg. Only reduced BP temporarily, so discontinued.
-trialed amlodipine 5 mg PO. Will discharge patient with this and instructions for PCP follow up.
#hyperglycemia
-blood sugar elevated in 200's, decreasing
-obtain accu chek and a1c
#DVT prophylaxis
-Lovenox
#CODE status
-full code
Anticipated Discharge: Today
Subjective/Interval History
-
Date of Service: March 14, 2025
No acute events overnight. This morning, patient had no complaints.
Objective Data
-
Labs:
Laboratory Results
03/13/25 03:42
03/14/25 03:24
PT 13.3 Sec (11.4-14.6) 03/10/25 17:24
INR 0.98 03/10/25 17:24
APTT 26.7 Sec (23.4-35.0) 03/10/25 17:24
Total Bilirubin 1.1 mg/dl (0.2-1.3) 03/14/25 03:24
AST 122 U/L (17-59) H 03/14/25 03:24
ALT 107 U/L (0-50) H 03/14/25 03:24
Alkaline Phosphatase 65 U/L (38-126) 03/14/25 03:24
Lipase 1327 U/L (23-300) H* 03/14/25 03:24
Vital Signs:
Vital Signs
Temp Pulse Resp BP Pulse Ox
97.6 F 79 49 140/100 97
03/14/25 07:19 03/14/25 02:00 03/13/25 15:00 03/14/25 02:00 03/13/25 23:59
I&O
03/13/25 03/14/25 03/15/25
06:59 06:59 06:59
Intake Total 2700 / 2700 2880 / 2880
Output Total 2950 / 2950 750 / 750
Balance -250 / -250 2130 / 2130
Review of Systems
-
History Source: Patient
All other systems: Reviewed and negative
Physical Exam
-
General: Well Developed, Well Nourished, No Apparent Distress and Comfortable
Respiratory: Clear to Auscultation and Non Labored Respirations
Cardiac: Regular Rhythm and S1/S2
GI: Soft, Nondistended and Normal Bowel Sounds
Musculoskeletal: No Clubbing, No Cyanosis and No Edema
Skin: Warm and Dry
Neuro: Awake and Alert
Psych: Calm
[2025-03-14] MEDS: FOLVITE 1 MG PO (08:18)
[2025-03-14] MEDS: TOPROL XL 50 MG PO (08:18)
[2025-03-14] MEDS: VITAMIN B1 100 MG PO (08:18)
[2025-03-14] MEDS: LUMINAL 64.8 MG PO (08:19)
--- NOTE | 2025-03-14 08:30 | PTCARENOTE ---
Rec'd pt at 0730 awake alert and oriented resting in bed asking to use the bathroom. Assisted into the bathroom to void - gait steady with no c/o dizziness. MSAS this am is a 1. Denies headache or dizziness. No tremors noted and pt is calm and
appropriated. Pt is primarily Kosovan speaking but does understand and can speak some Engish but also Language/Gleason Operator Ipad at the bedside. Denies pain. [place]. Skin is wm and dry. Respirs are unlabored on RA with sats of 98%. BS are clear. Monitor
SR. + pulses. No edema. Abd is round/soft with + BS. Denies nausea or abd tenderness. Voiding yellow urine in the toilet. IV LR infusing via LAC IV site at 150 ml/hr. Site wnl. Pt did own oral care and partial CHG bath given. Pt currently resting
back in bed. Plan of care reviewed and call collier in reach.
[2025-03-14] MEDS: TRANDATE 10 MG IV (10:43)
[2025-03-14] MEDS: FLUSH (NSS) 2 FLUSH IV (10:45)
--- NOTE | 2025-03-14 10:49 | PTCARENOTE ---
Dr. Cespedes in to see pt and uipdate. Plan is for DC later today. Aware of BP elevation. Labetolol 10 mg IV given. No other changes. No complainsts offered. Good appetite for breakfast. No c/o abd pain or nausea.
--- NOTE | 2025-03-14 11:10 | CM ---
Patient seen at bedside in icu with physicians. Patient changed pharmacy to [facility] in [place]. Patient to transport later today after 3pm. Patient able to go to Residency clinic and will have a copay. Patient encouraged to take medication by
physician and follow up with residency clinic. CM will continue to follow for discharge planning needs.
PLan; discharge home today; follow up with residency clinic and [facility] asked to see patient.
--- NOTE | 2025-03-14 12:11 | W.DCSUMMARY ---
Addendum entered and electronically signed by Margret Cespedes MD 03/14/25 15:35:
Read, reviewed, and agree. See same day progress note for additional details. Time spent coordinating care, DC planning, review of DC plan of care with resident, transition of care, review of records in EMR, med rec, consults, notes, d/w
consultants, nursing, family, and CM = 55 minutes
Original Note:
Discharge Summary
Discharge Data
Date of Admission: 03/10/25
Date of Discharge: 03/14/25
Total time spent discharging patient (in min): 55
-
Pending Results: No
Hospital Course
49-year-old male without significant past medical history presenting with abdominal pain with vomiting for 3 days, and found to have pancreatitis and severe steatosis, likely due to alcohol.
�
CT abdomen pelvis showed no significant peripancreatic inflammation or fluid collection despite elevated lipase levels; hepatomegaly and severe hepatic steatosis.
Lipase of 1900 on admission. Lipase downtrended for 2+ days. Increased slightly 03/14/25. Discharged with instructions to get blood work in 1 week and follow up with gastroenterology in 1 month and establish care with a primary care physician
(referred to residency clinic). Lactated ringer provided and decreased as diet was advanced to low-fat, which patient tolerated without n/v/d. Dietary services kindly provided education on low-fat diet.
LFTs downtrended consistently since admission.
Plan:
# Acute alcoholic pancreatitis
Lipase 1900 on admission. Increased to 2100. Decreased to 1000, 800. Increased to 1300
CT abdomen pelvis with impression of No significant peripancreatic inflammation/fluid or loculated fluid collection despite the elevated lipase levels. Hepatomegaly and severe hepatic steatosis.
- Triglycerides wnl
- Motrin (ibuprofen) prn for fever
- Trend lipase
- LR provided and decreased as Diet advanced to low-fat, which patient tolerated without n/v/d
# Alcoholic hepatitis
Severe hepatic steatosis on CT
� LFTs downtrending from AST 630 and ALT 203 to 100s
abdominal ultrasound with Dopplers (to evaluate for portal venous thrombosis): Small simple left renal cyst. Findings compatible with diffuse fatty liver. Otherwise, unremarkable abdominal ultrasound.
# Hypertensive urgency
BP 197/133 on admission
- trialed metoprolol XI 25mg PO daily and increased to 50 mg metroprolol XI PO daily
- trialed labetalol 10 mg IV. Discharging patient on labetalol 100 mg p.o. daily
- Trialed amlodipine 5 mg PO
#alcohol withdrawal
-alcohol protocol initiated
-monitor MSAS score
- informed patient of [facility] resource
- Consider precedex for future agitation/delirium since the patients respiratory rate was depressed to 9 after 10 mg Valium
- hypertension could be a symptom of withdrawal
- Patient has poor insight into his condition and did not have capacity per psych consult 03/12/25. Regained capacity 03/13/25
- Medical assistance forms provided
#Electrolyte abnormalities
# Hypokalemia
- Repleted p.o.
#Hypomagnesemia
- Repleted
# Acute hyponatremia, likely hypovolemic�resolved
#hyperglycemia
-blood sugar elevated in 200's, decreasing
-obtain accu chek and a1c
-full code
Discharge Plan
-
Patient Disposition: Home (Routine Discharge)
Discharge Diagnosis/Procedures: Acute alcoholic pancreatitis/hepatitis, acute alcohol withdrawal, electrolyte abnormalities, acute hyponatremia, hypertensive urgency
Condition: Good
Diet: Low Fat and Low Sodium
Additional Diets: Advance to regular diet after 1 week
absolutely NO ALCOHOL
Activity: As tolerated
Driving Restrictions: As prior to admission
Bathing Restrictions: None
Blood Work: Follow-up lipase, CMP, and CBC in 1 week.
Referrals:
Homero Keene MD, Resident [Family Practice Resident Year2, General] - in less than 1 week
Referral Note: Please see this physician for primary care and to follow up for this hospital stay.
Mis Olivas, DO [Active, Gastroenterology] - in one month
Referral Note:
Additional Discharge Medication Instructions: Please work on decreasing and ideally stopping alcohol intake. You were admitted for pancreas and liver inflammation due to alcohol. There are programs available to help with stopping alcohol intake,
such as the [facility] program.
Please get bloodwork in 1 week to follow up on the hopeful resolution of pancreatitis and hepatitis.
Please follow-up with stage setting painter apprentice Dr. Olivas to follow up on your pancreatitis and steatohepatitis (liver) in 1 month.
Prescriptions:
New
folic acid 1 mg Tablet
1 mg PO DAILY Qty: 30 0RF
thiamine mononitrate (vit B1) 100 mg Tablet
100 mg PO BID Qty: 30 0RF
labetalol 100 mg tablet
100 mg PO BID Qty: 60 0RF
Discharge Orders:
Discharge Patient (As Directed); Ordered 03/14/25
Ordered By: Margret Cespedes
Discharge Date and Time
Print Language: SRI LANKAN
--- NOTE | 2025-03-14 12:30 | PTCARENOTE ---
Bp briefly down s/p Labetolol but now back up into the 150-160's/110-[address] Cespedes updated. Assessment is otherwise unchanged. MSAS is a 1. LR continues to infuse at 150 ml/hr
[2025-03-14] MEDS: NORVASC 5 MG PO (13:33)
--- NOTE | 2025-03-14 13:35 | PTCARENOTE ---
Norvasc 5 mg Po given as ordered
--- NOTE | 2025-03-14 14:30 | PTCARENOTE ---
Good appetite for lunch. Morphologist in to speak with pt using the certified court/medical interpreter about diet at home. Dr. Bañuelos updated on BP post Norvasc 178/125. Pt is calm but anxious to go home today.
--- NOTE | 2025-03-14 15:15 | PTCARENOTE ---
Dr. Cespedes updated on pt and ok given for discharge.
--- NOTE | 2025-03-14 16:50 | PTCARENOTE ---
Pts at the bedside and along with the IPAD medical illustrator DC instuctions reviewed with pt with emphasis on not drinking ETOH and the need to take his Labetolol as his BP is still elevated, as well as follow up with the Family Resident
Clinic. Both pt and verbalized understanding. DC instructions sent with pt. Capped int removed from LAC -site wnl. Pt dc via wheelchair to home with at 1645.
--- NOTE | 2025-03-14 21:12 | W.PN.UPDATE ---
Update Note
Progress Note Update
pt seen this afternoon to assess progress. lipase increased as he began eating slightly. pt was doing calisthenics in his room when I entered. smiled, greeted me, interviewed with interchange agent tablet. looking forward to going home, says daughter
coming later today to get him. has no abdominal pain. some worry about recurrence of abd pain ('it was terrible') wants help with diet to carefully resume eating. swears will never drink again. ecnouraged to use aa
--- NOTE | 2025-03-20 07:11 | W.PN.UPDATE ---
Update Note
Progress Note Update
Acute liver injury/elevated liver enzymes elevated secondary to acute alcohol hepatitis c/b pancreatitis
== END 2025-03-14 17:30 | disposition home or self-care (01) | DRG 439 ==
LOC: ICU 14:02
PROVIDERS: Physician Assistant; Registered Nurse; ADMITTING PHYSICIAN Hospitalist; ATTENDING PHYSICIAN Internal Medicine; CONSULT PHYSICIAN Internal Medicine; CONSULT PHYSICIAN Psychiatry & Neurology Psychiatry; EMERGENCY PHYSICIAN Emergency Medicine
DX: K85.20 Alcohol induced acute pancreatitis without necrosis or infection (principal); E87.1 Hypo-osmolality and hyponatremia; F10.239 Alcohol dependence with withdrawal, unspecified; I16.1 Hypertensive emergency; R65.10 Systemic inflammatory response syndrome (SIRS) of non-infectious origin without acute organ dysfunction; K76.0 Fatty (change of) liver, not elsewhere classified; K70.10 Alcoholic hepatitis without ascites; E87.6 Hypokalemia; D69.6 Thrombocytopenia, unspecified; R73.9 Hyperglycemia, unspecified; E83.42 Hypomagnesemia; E86.1 Hypovolemia; Z11.52 Encounter for screening for COVID-19; Z79.899 Other long term (current) drug therapy
CPT/HCPCS: 74177; 76700; 80053; 80061; 80143; 80179; 80306; 80307; 81003; 81015; 82010; 82077; 82962; 82977; 83036; 83690; 83735; 84100; 85025; 85027; 85610; 85730; 86704; 86706; 86708; 86709; 86803; 87040; 87077; 87086; 87340; 87502; 87811; 93005; 93975; 96361; 96374; 96375; 99285; Q9967